=== PATIENT | male | born 2000 | race Caucasian/White ===

== ENCOUNTER 2023-12-19 04:27 | Emergency (ER) | payer BC ==
[~2023-12-19] VITALS: Ht 170.2 cm; Wt 66.6 kg
[2023-12-19 11:18] VITALS: BP 134/92; TEMP 97.3; O2SAT 100
[2023-12-19] MEDS: LIDOCAINE 1% MDV 20ML VIAL SC ONE (11:25)
[2023-12-19] MEDS ORDERED: METH-1164 PO (11:45)
[2023-12-19] MEDS: KETOROLAC 30 MG/ML 1ML VIAL IM ONE (12:00)
== END 2023-12-19 12:15 | disposition home or self-care (01) ==
LOC: M ED 04:27
DX: M62.830 Muscle spasm of back (principal); Z79.899 Other long term (current) drug therapy
CPT/HCPCS: 20552; 96372; 99283; J1885

== ENCOUNTER → 2024-02-23 | Outpatient (REF) ==
[~2024-02-23] MED LIST: METH-1164 PO
== END ==
LOC: M EMP 06:48
PROVIDERS: ATTEND Family Medicine
DX: Z11.52 Encounter for screening for COVID-19 (principal)

== ENCOUNTER → 2024-06-18 | Outpatient (CLI) | payer BC | LOC: M PLALAB 15:09 | PROVIDERS: ATTEND Student in an Organized Health Care Education/Training Program | DX: Z53.20 Procedure and treatment not carried out because of patient's decision for unspecified reasons (principal) ==

== ENCOUNTER → 2024-06-18 | Outpatient (REF) | payer BC | LOC: M SFHCPLAZ 17:20 | PROVIDERS: ATTEND Family Medicine | DX: Z53.9 Procedure and treatment not carried out, unspecified reason (principal) ==

== ENCOUNTER → 2024-06-19 | Outpatient (CLI) | payer BC | LOC: M LAB 10:55 | PROVIDERS: ATTEND Student in an Organized Health Care Education/Training Program | DX: Z00.00 Encounter for general adult medical examination without abnormal findings (principal) ==

== ENCOUNTER → 2024-07-02 | Outpatient (REF) | LOC: M EMP 13:12 | PROVIDERS: ATTEND Family Medicine | DX: Z01.89 Encounter for other specified special examinations (principal) ==